=== PATIENT | female | born 1975 | race Caucasian/White ===

== ENCOUNTER 2019-08-04 07:35 | Emergency (ER) | payer OTHER, SELFPAY ==
--- NOTE | ~2019-08-04 | CT_ITS ---
EXAMINATION: CT abdomen pelvis w con DATE: 08/04/2019 08:50 INDICATION: Left upper quadrant abdominal pain. Left flank pain. TECHNIQUE: Computed tomography (CT) of the abdomen and pelvis was performed with 100 mL Omnipaque 350 intravenous contrast. Automated exposure control and iterative reconstruction technique were employe d. The dose-length product was 1075.51 mGy-cm. COMPARISON: CT abdomen and pelvis 05/10/2012 FINDINGS: The visualized portions of the lung bases demonstrate mild atelectasis. No pleural effusion . The heart size is normal. No pericardial effusion. The liver, gallbladder, spleen, pancreas, adrena l glands, and kidneys are normal. There are no dilated loops of bowel. The appendix is normal. There are no pathologically enlarged lymph nodes. There is no free intraperitoneal fluid. There is mild lum bar spondylosis. IMPRESSION: 1. No etiology for the patient's symptoms. Reviewed, dictated and finalized at location A.
--- NOTE | ~2019-08-04 | XR_ITS ---
EXAMINATION: XR chest 2V DATE: 08/04/2019 08:55 INDICATION: Left chest pain. TECHNIQUE: Frontal and lateral views of the chest were obtained. COMPARISON: CT abdomen and pelvis 08/04/2019 FINDINGS: There is mild atelectasis in right lower lung zone. No pleural effusion or pneumothorax. Th e heart size is normal. IMPRESSION: 1. Mild atelectasis in right lower lung zone. Reviewed, dictated and finalized at location A.
[2019-08-04 07:54] VITALS: BP 119/84; PULSE 80; RESP 18; TEMP 36.8; O2SAT 100
--- NOTE | 2019-08-04 07:54 | ECG_ITS ---
Measurements Intervals [place] Rate: 72 P: 54 CA: 165 QRS: 5 QRSD: 81 T: 45 QT: 360 QTc: 394 Interpretive Statements SINUS RHYTHM BASELINE ARTIFACT- V4-V5 NORMAL ECG Electronically Signed On 08-04-2019 8:42:29 CDT by Guilherme Barry D.O.
--- NOTE | 2019-08-04 07:55 | ED.ABDPAIN ---
HPI - Abdominal Pain General Chief Complaint: Urogenital-Female Stated Complaint: LUQ pain Time Seen by Provider: 08/04/19 07:39 Source: patient Mode of arrival: ambulatory Limitations: no limitations History of Present Illness HPI narrative: Patient is a 44-year-old female who presents for evaluation of left-sided flank pain. Patient has had intermittent pain over the past several days, worsening over the course of the day. Patient also is reporting radiation of the pain into her shoulder. She denies any chest pain, shortness of breath. No rashes. No fever, nausea or vomiting. No dysuria or hematuria. Pain is described as sharp, shooting in nature. No diaphoresis. No leg pain or hip pain. No recent falls or injuries. Patient has not taken anything to help with the pain. Touching the skin seems to aggravate the pain. Related Data Allergies Allergy/AdvReac Type Severity Reaction Status Date / Time azithromycin Allergy Unknown Verified 01/02/15 11:51 ciprofloxacin Allergy Unknown Verified 01/02/15 11:51 codeine Allergy Unknown Verified 01/02/15 11:51 Review of Systems Review of Systems: Narrative: CONSTITUTIONAL: Denies fever, chills, or sweats. EYES: Denies visual changes, redness, or discharge. ENT: Denies rhinorrhea, congestion, sore throat, or otalgia. CARDIOVASCULAR: Denies chest pain, palpitations, or edema. RESPIRATORY: Denies cough or dyspnea. GASTROINTESTINAL: Denies abdominal pain, nausea, vomiting, or diarrhea. Reports left flank pain. GENITOURINARY: Denies dysuria or hematuria. SKIN: Denies rash or itching. MUSCULOSKELETAL: Denies upper back pain, joint pain or myalgia NEUROLOGIC: Denies headache, numbness, or weakness. [facility] Past Medical History Medical History (Updated 08/04/19 @ 09:51 by Dot Nichole MD) Depression Fibromyalgia Ovarian cyst Pulmonary embolism Surgical History Surgical History (Updated 08/04/19 @ 07:57 by Dot Nichole MD) Hx of tonsillectomy Social History Social History Smoking status: Never smoker Alcohol intake: current Gender identity (if verbalized by the patient): Female Exam Narrative: Exam Narrative: GENERAL: Awake, alert, conversant, uncomfortable. HEAD: Normocephalic, atraumatic. EYES: PERRLA and EOMI. ENT: Nares clear, no rhinorrhea or epistaxis. Mucous membranes moist. NECK: Supple. CHEST: No respiratory distress, breathing even and non labored HEART: Regular rate, sinus rhythm ABDOMEN:Non distended, non tender. Positive left flank tenderness, exactly reproduces pain. No rash. No ecchymoses. No masses. EXTREMITIES: Normal range of motion. No edema. SKIN: Warm, dry, no rash. No vesicles. NEURO:No focal deficits. Alert and oriented x3. Ambulatory with a narrow-based, steady gait. Course Course Emergency Course: Patient presented for evaluation of back pain. Pain is very reproducible on exam, which makes me believe this is likely musculoskeletal. Patient has no abdominal pain, suprapubic pain, or other systemic symptoms such as fever, nausea, vomiting. Laboratory results are reassuring. Mild leukocytosis which may be secondary to stress/pain type response. No UTI. No severe electrolyte derangement. No etiology for symptoms found on CAT scan. Reassessed patient she was comfortable appearing. I discussed etiology of the pain with her, discussed her CT results, I believe patient is okay for follow-up at this point is no other symptoms, again pain continues to be exactly reproducible on the right lumbar paraspinal area. No sign of shingles, rash. Patient was then discharged home with PCP follow-up and prescriptions for symptomatic care. Vital Signs Vital signs: Vital Signs Temperature 36.8 C 08/04/19 07:54 Pulse Rate 80 08/04/19 07:54 Respiratory Rate 18 08/04/19 07:54 Blood Pressure 119/84 08/04/19 07:54 Pulse Oximetry 100 08/04/19 07:54 Temperature 36.8 C
[2019-08-04 08:12] LABS: Basophils Absolute Auto 0.1 K/mm3 (0.0-0.1); Basophils Percent Auto 0.4 % (0.2-1.2); Eosinophils Absolute Auto 0.6 K/mm3 (0-0.3); Eosinophils Percent Auto 4.8 % (0-4.4); Hematocrit 44.2 % (37.0-47.0); Hemoglobin 14.3 g/dL (12.0-15.0); Immature Granulocyte Absolute 0.02 K/mm3 (0.00-0.031); Immature Granulocyte Percent A 0.2 % (0-0.5); Lymphocytes Absolute Auto 2.72 K/mm3 (0.9-3.2); Lymphocytes Percent Auto 23.1 % (18.3-44.2); Mean Corpuscular HGB Conc 32.4 g/dl (32-36); Mean Corpuscular Hemoglobin 31.6 pg (26-34); Mean Corpuscular Volume 97.6 fl (80-100); Mean Platelet Volume 11.7 fl (7.4-10.4); Monocytes Absolute Auto 0.7 K/mm3 (0.1-0.6); Monocytes Percent Auto 5.9 % (2.6-8.5); Neutrophils Absolute Auto 7.7 K/mm3 (1.3-6.7); Neutrophils Percent Auto 65.6 % (45.5-73.1); Platelet Count Result 225 k/mm3 (150-375); Red Blood Count 4.53 M/mm3 (4.2-5.4); Red Cell Distribution Width 13.4 % (11.5-14.5); White Blood Count 11.8 K/mm3 (4.5-10.0)
[2019-08-04] MEDS: ONDANSETRON INJ 4 MG/2 ML VIAL IV PUSH (08:17)
[2019-08-04] MEDS: SODIUM CHLORIDE 0.9% IV 1,000 ML 999 ML IV CONT (08:17)
[2019-08-04] MEDS: MORPHINE SULFATE 4 MG/ML INJ IV PUSH (08:18)
[2019-08-04] MEDS: ACETAMINOPHEN 500 MG TABLET 1000 MG PO (08:18)
[2019-08-04 08:21] LABS: Add Urine Microscopic? YES; Appearance Urine Clear (Clear); Bilirubin Urine Negative (Negative); Blood Urine Negative (Negative); Color Urine Yellow (Yellow); Glucose Urine UA Negative (Negative); Ketones Urine Trace mg/dL (Negative); Leukocyte Esterase Ur Negative LEU/UL (Negative); Mucus Urine Rare /lpf; Nitrate Urine Negative (Negative); Protein Urine Negative (Negative); Specific Grav Ur 1.025 (1.001-1.035); Squamous Epithelial Cell Urine Many /hpf (Few); WBC Urine 0-3 /hpf
[2019-08-04 08:22] LABS: INR 0.9; Prothrombin Time 11.6 Seconds (11.1-14.7)
[2019-08-04 08:23] LABS: Partial Thromboplastin Time 26.6 SECONDS (22.3-36.8)
[2019-08-04] MEDS: KETOROLAC 15 MG/ML VIAL (*BKC) IV PUSH (08:23)
[2019-08-04 08:24] LABS: Alanine Aminotransferase 13 U/L (4-35); Alkaline Phosphatase 74 U/L (38-126); Aspartate Amino Transferase 17 U/L (14-36); Bilirubin,Total 0.4 mg/dL (0.2-1.3); Blood Urea Nitrogen 13 mg/dL (7-17); Calcium 8.6 mg/dL (8.4-10.2); Carbon Dioxide 30 mmol/L (22-30); Chloride 107 mmol/L (98-107); Estimated CRCL calculation 94 ml/min; Estimated Glomerular Filt Rate > 60; Glucose 70 mg/dL (65-105); Lipase 58 U/L (23-300); Potassium 4.3 mmol/L (3.4-5.0); Sodium 139 mmol/L (137-145)
[2019-08-04 08:35] LABS: Troponin I < 0.012 ng/mL (0.000-0.034)
--- NOTE | 2019-08-04 08:47 | PC.NURSE ---
Pt states she had L sided flank pain 8 days ago that lasted 2 days and went away. Pt states she started with L sided flank pain yesterday and this morning it started radiating to her L shoulder. Pt is A&Ox4. Pt states she has no other symptoms and no urinary symptoms. Pt states she does yard work frequently. Pt appears in NAD. Pt has call light in reach
[2019-08-04 09:03] VITALS: O2SAT 100
[2019-08-04 09:15] VITALS: O2SAT 100
[2019-08-04 09:17] VITALS: BP 116/80; O2SAT 100
[2019-08-04 09:30] VITALS: O2SAT 100
[2019-08-04 09:32] VITALS: BP 119/89; O2SAT 100
== END 2019-08-04 10:06 | disposition home or self-care (01) ==
PROVIDERS: Emergency Provider Emergency Medicine
DX: M62.830 Muscle spasm of back (principal); Z86.711 Personal history of pulmonary embolism; M79.7 Fibromyalgia; R91.8 Other nonspecific abnormal finding of lung field
CPT/HCPCS: 36415; 71046; 74177; 80053; 81001; 81025; 83690; 84484; 85025; 85610; 85730; 93005; 96361; 96374; 96375; 99284; A9270; J1885; J2270; J2405; J7030; Q9967

== ENCOUNTER → 2020-08-09 10:38 | Outpatient (CLI) | payer OTHER, SELFPAY ==
--- NOTE | ~2020-08-09 | MR_ITS ---
EXAMINATION: MR brain/brain stem wo/w con DATE: 08/09/2020 11:27 INDICATION: Migraine headache with aura and without status migrainosus. TECHNIQUE: Magnetic resonance imaging (MRI) of the brain and brainstem was performed without and with 20 mL MultiHance intravenous contrast. Sequences included sagittal and axial T1-weighted FSE, axial diffusion-weighted FS EPI, axial T2*-weighted GRE, axial T2-weighted FLAIR Propeller, and axial T2-we ighted Propeller. Postcontrast sequences included axial and coronal T1-weighted FSE. Apparent diffusi on coefficient (ADC) maps were created. COMPARISON: None. FINDINGS: There is no intracranial hemorrhage, acute infarction, or abnormal intracranial mass lesion . The ventricles are normal in size. The mastoid air cells are normal. The paranasal sinuses are sofia r. The orbits are normal. IMPRESSION: 1. Normal brain. Reviewed, dictated and finalized at location A. IMPRESSION: 1. Normal brain.
[2020-08-09 11:06] LABS: Estimated Glomerular Filt Rate > 60
== END ==
DX: G43.109 Migraine with aura, not intractable, without status migrainosus (principal)
CPT/HCPCS: 70553; A9577

== ENCOUNTER → 2023-02-16 08:21 | Outpatient (CLI) | payer OTHER, SELFPAY ==
--- NOTE | ~2023-02-16 | US_ITS ---
US right upper quadrant INDICATION: Postprandial epigastric pain PROCEDURE: Realtime right upper abdominal ultrasound. COMPARISON: No prior studies for comparison. FINDINGS: The pancreas is normal without focal mass or pancreatic ductal dilation. Liver echotexture is increased, consistent with fatty infiltration. There is normal directional flow in the portal ve in. There are gallbladder polyps measuring 6 mm or less. Common bile duct measures 5 mm. No sonographic Keene's sign. IMPRESSION: 1: Gallbladder polyps measuring up to 6 mm. Reviewed, dictated and finalized at location L.
== END ==
DX: K82.4 Cholesterolosis of gallbladder (principal)
CPT/HCPCS: 76705